=== PATIENT | male | born 1990 | race Caucasian/White ===

== ENCOUNTER 2019-01-05 14:08 | Emergency (ER) | payer MEDICAID, OTHER ==
[2019-01-05] MEDS ORDERED: Lidocaine 2% 5 ML SDV INJECT ONE (14:20)
[2019-01-05] MEDS ORDERED: Bacitracin Oint 1 GM U/D Packet TOP ONE (15:00)
--- NOTE | 2019-01-05 16:26 | EDM.PDOC ---
ED HPI GENERAL MEDICAL PROBLEM - General Chief Complaint: Laceration Stated Complaint: CUT HAND Time Seen by Provider: 01/05/19 14:35 Source of Information: Reports: Patient History Limitations: Reports: No Limitations - History of Present Illness INITIAL COMMENTS - FREE TEXT/NARRATIVE: This is a 28yo M who cut his left thumb with a electrical exacto knife. He denies any difficulties with movement, no loss of sensation, no other concerns. He states his prior tetanus was 2 years ago. 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 ED EXAM, SKIN/RASH Exam: See Below Exam Limited By: No Limitations General Appearance: Alert, WD/WN, No Apparent Distress Ears: Normal External Exam Nose: Normal Inspection Throat/Mouth: Normal Inspection Head: Atraumatic, Normocephalic Neck: Normal Inspection Respiratory/Chest: No Respiratory Distress Cardiovascular: Normal Peripheral Pulses GI/Abdominal: Normal Bowel Sounds Neurological: Alert, Oriented, CN II-XII Intact Psychiatric: Normal Affect, Normal Mood Skin: Other (linear laceration 7cm) Location, Skin: Upper Extremity, Left ED SKIN PROCEDURES - Laceration/Wound Repair Left Digit - 1st (Thumb) Appearance: Subcutaneous Distal NVT: Neuro & Vascular Intact, No Tendon Injury Anesthetic Type: Local Local Anesthesia - Lidocaine (Xylocaine): 2% Plain Local Anesthetic Volume: 3cc Skin Prep: Providone-Iodine (Betadine), Saline, Sterile Drape Saline Irrigation (cc's): 250 Exploration/Debridement/Repair: Wound Explored, No Foreign Material Found Closed with: Sutures Lac/Wound length In cm: 7 Suture Size: 4-0 # of Sutures: 9 Suture Type: Interrupted, Simple Tetanus Status Addressed: Yes Course - Vital Signs Last Recorded V/S: Last Vital Signs Temp 36.8 C 01/05/19 14:13 Pulse 86 01/05/19 14:13 Resp 16 01/05/19 14:13 BP 134/86 01/05/19 14:13 Pulse Ox 95 01/05/19 14:13 Departure - Departure Time of Disposition: 15:20 Disposition: Home, Self-Care 01 Condition: Good Clinical Impression: Laceration of thumb - Discharge Information Instructions: Wound Infection, [id number] Referrals: PCP,None [Primary Care Provider] - Forms: ED Department Discharge Additional Instructions: - Keep thumb dry. If you need to shower just cover your hand to avoid wetting it. - May take Ibuprofen every 4-6 hours when needed for pain. - Follow-up in the clinic in 10 days for removal of sutures. Could also be done in the clinic down in [facility]. _ Observed the wound for infection such as: increasing redness and pain, pus drainage from the wound, fever, follow up in the clinic for treatment. - Problem List & Annotations (1) Laceration of thumb SNOMED Code(s): 430779262 Code(s): S61.019A - LACERATION W/O FOREIGN BODY OF THMB W/O DAMAGE TO NAIL, INIT Status: Acute Priority: High Current Visit: Yes Qualifiers: Encounter type: initial encounter Damage to nail status: without damage Foreign body presence: without foreign body Laterality: left Qualified Code( s): S61.012A - Laceration without foreign body of left thumb without damage to nail, initial encounter - Problem List Review Problem List Initiated/Reviewed/Updated: Yes - Assessment/Plan Plan: Counseled on wound care and management. Discussed suture removal in 7-10 days. F /u as needed if any complications or issues. F/u as needed.
== END 2019-01-05 15:40 | disposition home or self-care (01) ==
LOC: LB.ED 14:08
DX: S61.012A Laceration without foreign body of left thumb without damage to nail, initial encounter (principal); Z88.2 Allergy status to sulfonamides; W26.0XXA Contact with knife, initial encounter
CPT/HCPCS: 12002; 99282; J2001